=== PATIENT | female | born 2000 | race Hispanic/Latino ===

== ENCOUNTER 2022-05-31 15:32 | Outpatient (CLI) | payer OTHER | END 2022-05-31 15:33 | disposition home or self-care (01) | LOC: BICRAD 15:32 | PROVIDERS: ATTEND Nurse Practitioner Women's Health | DX: R11.2 Nausea with vomiting, unspecified (principal) | CPT/HCPCS: 74018 ==

== ENCOUNTER 2022-06-26 00:10 | Inpatient (IN) | payer OTHER ==
[2022-06-26 00:42] LABS: #Lymphocytes 1.5 thou/uL (1.20-3.40); #Monocytes 0.5 thou/uL (0.11-0.59); #Neutrophils 6.7 thou/uL (1.40-6.50); %Basophils 0.2 % (0.0-1.0); %Eosinophils 0.2 % (0.0-10.0); %Lymphocytes 16.7 % (28.0-48.0); %Monocytes 5.6 % (0.0-4.0); %Neutrophils 77.3 % (31.0-61.0); Hemoglobin 13.6 g/dL (12.0-16.0); Mean Corpuscular Hemoglobin 26.9 pg (25.0-35.0); Mean Platelet Volume 9.4 fL (7.4-10.4); Platelet Count 218 thou/uL (130-400); RBC Distribution Width 13.1 % (11.5-14.5); Red Blood Cell (RBC) Count 5.07 mill/uL (4.00-5.20); White Blood Cell (WBC) Count 8.6 thou/uL (4.8-10.8)
[2022-06-26 00:54] LABS: Bacteria/HPF None Seen HPF (None Seen); Bilirubin Negative (Negative); Blood, Urine 2+ (Negative); Clarity Turbid (Clear); Glucose, Urine (Dipstick) Normal (Negative); Ketone, Urine Negative (Negative); Leukocyte 75 Leu/uL (Negative); Nitrite Negative (Negative); Protein, Urine (Dipstick) Negative (Neg-Trace); Specific Gravity, Urine 1.013 (1.002-1.036); Urobilinogen Normal mg/dL (Less than 2)
[2022-06-26 00:56] LABS: Pregnancy Test - Urine (BHCG) Negative (Negative); Pregu Control Background? CLEAR/WHITE (CLR/WHITE); Pregu Control Bar Appear? YES (CONTROL BAR); Specific Gravity 1.013 (1.002-1.036)
[2022-06-26 00:58] LABS: ALT (SGPT) 113 U/L (8-55); AST (SGOT) 194 U/L (5-34); Albumin 4.5 g/dL (3.5-5.0); Alkaline Phosphatase 112 U/L (40-100); Anion Gap 15 mmol/L (10-20); BUN (Urea Nitrogen) 7 mg/dL (7.0-18.7); Bilirubin, Total 0.9 mg/dL (0.2-1.2); Calc. Creatinine Clearance 0 mL/min (70-130); Calcium 9.6 mg/dL (7.8-10.44); Carbon Dioxide 23 mmol/L (22-29); Chloride 105 mmol/L (98-107); Estimated GFR 117; Globulin 3.5 g/dL (2.4-3.5); Glucose 107 mg/dL (70-105); Potassium 3.9 mmol/L (3.5-5.1); Sodium 139 mmol/L (136-145)
[2022-06-26 01:13] LABS: Lipase 3359 U/L (8-78)
[2022-06-26] MEDS ORDERED: Morphine 4 MG/ML VIAL ONE ×2 (01:30→04:01)
[2022-06-26] MEDS ORDERED: Ondansetron PF 4 MG/2 ML Vial ONE (01:31)
[2022-06-26] MEDS ORDERED: Promethazine HCl 25 MG/ML VIAL IM PRN (05:46)
[2022-06-26] MEDS ORDERED: Acetaminophen 650 MG Suppository PR PRN (05:46)
[2022-06-26] MEDS ORDERED: Ondansetron PF 4 MG/2 ML Vial IVP PRN (05:46)
[2022-06-26] MEDS ORDERED: Ondansetron ODT 4 MG TAB PO PRN (05:46)
[2022-06-26] MEDS ORDERED: Acetaminophen 325 MG TAB PO PRN (05:46)
[2022-06-26] MEDS ORDERED: Morphine 4 MG/ML VIAL SLOW IVP PRN (06:01)
[2022-06-26 06:45] LABS: SARS-CoV-2 NAA Rapid Test Not Detected (NotDetected)
[2022-06-26] MEDS: Sodium Chloride 0.9% 1,000 ML IV SCH ×3 (09:28→20:01)
[2022-06-26] MEDS ORDERED: Iopamidol 370 76% 100 ML VIAL ONE (09:49)
[2022-06-26] MEDS ORDERED: cefTRIAXone\\ROCEPHIN 1 GM in Sodium Chloride 0.9% 100 ML IVPB SCH (10:00)
[2022-06-26 18:40] VITALS: BMI 40.1
[2022-06-27] MEDS: Sodium Chloride 0.9% 1,000 ML IV SCH ×5 (01:50→23:55)
[2022-06-27 04:50] LABS: #Eosinphils 0.1 thou/uL (0.0-0.7); #Lymphocytes 2.7 thou/uL (1.20-3.40); #Monocytes 0.4 thou/uL (0.11-0.59); #Neutrophils 3.7 thou/uL (1.40-6.50); %Basophils 0.4 % (0.0-1.0); %Eosinophils 1.2 % (0.0-10.0); %Monocytes 5.7 % (0.0-4.0); %Neutrophils 53.7 % (31.0-61.0); Hemoglobin 11.4 g/dL (12.0-16.0); Mean Corpuscular HGB CONC 31.8 g/dL (32.0-36.0); Mean Corpuscular Hemoglobin 27.1 pg (25.0-35.0); Mean Corpuscular Volume 85.1 fL (78.0-98.0); Mean Platelet Volume 8.9 fL (7.4-10.4); Platelet Count 173 thou/uL (130-400); RBC Distribution Width 13.2 % (11.5-14.5); White Blood Cell (WBC) Count 6.9 thou/uL (4.8-10.8)
[2022-06-27 05:04] LABS: ALT (SGPT) 132 U/L (8-55); AST (SGOT) 81 U/L (5-34); Albumin 3.4 g/dL (3.5-5.0); Alkaline Phosphatase 91 U/L (40-100); Bilirubin, Direct 0.2 mg/dL (0.1-0.3); Bilirubin, Total 0.5 mg/dL (0.2-1.2); Protein, Total 6.1 g/dL (6.0-8.3)
[2022-06-27 05:05] LABS: Anion Gap 11 mmol/L (10-20); BUN (Urea Nitrogen) 5 mg/dL (7.0-18.7); Calc. Creatinine Clearance 215 mL/min (70-130); Calcium 8.2 mg/dL (7.8-10.44); Carbon Dioxide 23 mmol/L (22-29); Cardiac Risk 4.8 (Less than 4.5); Chloride 109 mmol/L (98-107); Cholesterol 129 mg/dl (< 200 Desired); Estimated GFR 128; Glucose 71 mg/dL (70-105); HDL Cholesterol 27 mg/dL (>60 Neg Risk); LDL Cholesterol, Calculated 83 mg/dL; Lipase 447 U/L (8-78); Potassium 3.4 mmol/L (3.5-5.1); Sodium 140 mmol/L (136-145); Triglycerides 94 mg/dL (Less than 150)
[2022-06-27] MEDS ORDERED: Midazolam HCl 2 mg/2 ml Vial ONE ×2 (12:38→12:58)
[2022-06-27] MEDS ORDERED: fentaNYL Citrate/PF 100 MCG/2 ML SYRINGE ONE (12:38)
[2022-06-27] MEDS ORDERED: HYDROmorphone 0.5 MG/0.5 ML SYRINGE ONE (12:39)
[2022-06-27] MEDS ORDERED: Bupivacaine/Epinephrine 0.25% 30 ML VIAL ONE (12:54)
[2022-06-27] MEDS ORDERED: Iopamidol 30 ML ONE (12:54)
[2022-06-27] MEDS ORDERED: PROPOFOL 200 MG/20 ML VIAL ONE (13:07)
[2022-06-27] MEDS ORDERED: Ondansetron PF 4 MG/2 ML Vial ONE (13:07)
[2022-06-27] MEDS ORDERED: Neostigmine Methylsulfate 3 MG/3 ML SYRINGE ONE (13:07)
[2022-06-27] MEDS ORDERED: Lidocaine 1% PF 5 ML VIAL ONE (13:07)
[2022-06-27] MEDS ORDERED: Rocuronium Bromide 10 MG/ML (10ML VIAL) ONE (13:07)
[2022-06-27] MEDS ORDERED: Glycopyrrolate 0.2 MG/ML 5 ML SYRINGE ONE (13:07)
[2022-06-27] MEDS ORDERED: Dexamethasone 20 MG/5 ML VIAL ONE (13:07)
[2022-06-27] MEDS ORDERED: Ketorolac Tromethamine 30 MG/ML VIAL ONE (13:07)
[2022-06-27] MEDS ORDERED: CEFAZOLIN 2 GM VIAL ONE (13:08)
[2022-06-27] MEDS ORDERED: Sodium Chloride 0.9% 100 ML ONE (13:08)
[2022-06-27] MEDS ORDERED: traMADol HCl 50 MG TAB PO PRN ×2 (15:17)
[2022-06-27] MEDS ORDERED: Promethazine HCl 25 MG/ML VIAL IVPB PRN (15:18)
[2022-06-27] MEDS ORDERED: HYDROmorphone 2 MG/ML VIAL SLOW IVP PRN (15:18)
[2022-06-27] MEDS ORDERED: Promethazine HCl 25 MG/ML VIAL IM PRN (15:18)
[2022-06-27] MEDS ORDERED: Ondansetron HCl/PF 4 MG/2 ML Vial IVP PRN (15:18)
[2022-06-27] MEDS ORDERED: Fentanyl 100 MCG/2 ML VIAL ONE ×2 (15:23→15:41)
[2022-06-27] MEDS: Acetaminophen 325 MG TAB PO SCH ×2 (16:49→21:13)
[2022-06-27] MEDS: Ketorolac Tromethamine 30 MG/ML VIAL IVP SCH ×2 (16:49→21:12)
[2022-06-28] MEDS: Ketorolac Tromethamine 30 MG/ML VIAL IVP SCH ×2 (03:15→09:00)
[2022-06-28] MEDS: Acetaminophen 325 MG TAB PO SCH ×2 (03:15→09:00)
[2022-06-28 05:21] LABS: ALT (SGPT) 92 U/L (8-55); AST (SGOT) 42 U/L (5-34); Albumin 3.4 g/dL (3.5-5.0); Alkaline Phosphatase 88 U/L (40-100); Bilirubin, Direct 0.1 mg/dL (0.1-0.3); Bilirubin, Total 0.2 mg/dL (0.2-1.2); Protein, Total 6.2 g/dL (6.0-8.3)
[2022-06-28] MEDS: Sodium Chloride 0.9% 1,000 ML IV SCH (06:38)
[2022-06-28 08:21] VITALS: BP 106/62; TEMP 97.7
== END 2022-06-28 12:45 | disposition home or self-care (01) | DRG 417 ==
LOC: ERS 00:10 → MSONC 04:54 → OBSVTOIN 06-27 07:17
PROVIDERS: ADMIT Internal Medicine; ATTEND Internal Medicine
PROC: 0FT44ZZ Resection of Gallbladder, Percutaneous Endoscopic Approach (ICD-10-PCS; principal; 2022-06-27)
DX: K80.00 Calculus of gallbladder with acute cholecystitis without obstruction (principal); K85.10 Biliary acute pancreatitis without necrosis or infection; Z68.41 Body mass index [BMI] 40.0-44.9, adult; N39.0 Urinary tract infection, site not specified; Z20.822 Contact with and (suspected) exposure to COVID-19; E66.01 Morbid (severe) obesity due to excess calories; G89.29 Other chronic pain; M54.50 Low back pain, unspecified; I10 Essential (primary) hypertension
CPT/HCPCS: 36415; 74177; 74181; 76705; 80048; 80053; 80061; 80076; 80307; 81003; 81015; 81025; 83690; 84478; 85025; 88304; 96375; 96376; C1713; G0378; J0690; J0696; J1100; J1170; J1885; J2250; J2270; J2405; J2704; J3010; J3490; J7050; Q9967; U0002